=== PATIENT | female | born 1935 ===

== ENCOUNTER 2020-09-30 03:16 | Emergency (ER) | payer OTHER ==
[2020-09-30] MEDS ORDERED: EPINEPHrine 1 MG/10 ML SYR IV ONE (03:17)
--- NOTE | 2020-09-30 06:11 | ER ---
Nurse's Notes [facility] [place] Name: [place] Times Age: 85 yrs Sex: Female : 1935 Arrival Date: 09/30/2020 Time: 03:17 Bed 3 Private MD: Diagnosis: Cardiac arrest Presentation: 09/30 03:15 Chief complaint: EMS states: Pt coming from home CPR in progress. Pt went to bed last dm5 night nauseated and not feeling well. 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 Law enforcement was first on scene and initiated CPR. COMPRESSOR REPAIRER patient was shocked 3 times, received 450 Amiodarone via IO, 5 rounds of epi IO, 1 gram calcium, and 500 ml NS bolus by EMS. Pt has ETT 7.5. CPR was being performed mechanically and then ED staff took over. 03:15 Coronavirus screen: unresponsive. Ebola Screen: Unable to complete the Ebola screening wh because: Patient is unresponsive. Initial Sepsis Screen: Does the patient meet any 2 criteria? No. Patient's initial sepsis screen is negative. Does the patient have a suspected source of infection? No. Patient's initial sepsis screen is negative. Risk Assessment: Do you want to hurt yourself or someone else? Unable to obtain. Onset of symptoms was September 30, 2020. 03:15 Care prior to arrival: Assisted ventilation, Oral intubation, CPR via thumper performed rv by EMS and is still in progress. 03:15 Compressions began prior to arrival. rv 03:36 Acuity: MONICA 1 dm5 03:36 Method Of Arrival: EMS: [facility] dm5 Triage Assessment: 03:15 General: Appears UNresponsive. Historical: - Allergies: 03:54 Unable to obtain; wh - Home Meds: 03:54 Unable to obtain [Active]; wh - PMHx: 03:54 Unable to obtain; wh - PSHx: 03:54 Unable to obtain; - Immunization history:: Adult Immunizations unknown. - Social history:: Smoking status: unknown. Screenin:15 Abuse screen: UNresponsive. Nutritional screening: unresponsive. Tuberculosis wh screening: unresponsive. Fall Risk None identified. Assessment: 03:15 General: Behavior is unresponsive. Pain: Unable to use pain scale. Patient is wh unresponsive. Neuro: Pupils are fixed, dilated. Neuro: Level of Consciousness is unresponsive. Cardiovascular: Rhythm is PEA. Respiratory: Airway via oral intubation. GI: Abdomen is flat, non-distended. : No deficits noted. EENT: pupils fixed dilated. Derm: Skin is intact. 03:15 CPR assessment: unresponsive, pupils fixed \T\ dilated, no respiratory effort, intubated, rv Ambu ventilation, pulses absent w/ compressions. Cardiac rhythm is PEA. 03:16 Reassessment: Life alert bracelet on left arm. 03:16 Reassessment: Central line on right femoral access. 03:40 Reassessment: Officer at bedside. 04:25 Reassessment: Steersman at bedside. 04:30 Reassessment: Family was notified by Charge Nurse that we are just waiting for the Fruit Pitter to come and see Pt prior to letting family see Pt. 05:30 Reassessment: Fruit Pitter recommendation for the body to be autopsied, Fruit Pitter will talk to family. 05:58 Reassessment: Family at bedside. 06:01 Reassessment: Body to be taken by SR transport. Vital Signs: 03:15 Temp 95.4; ED Course: 03:15 Arm band placed on right wrist. 03:15 Maintain EMS IV. 03:17 Patient arrived in ED. cl3 03:20 Placed in gown. Side rails up X 1. 03:20 No provider procedures requiring assistance completed. Pt . 03:22 Keyon Herrera MD is Attending Physician. tw4 03:23 Keyon Herrera MD is Pronouncing Provider. tw4 03:27 called [place] [employer] to notify the sheriff's detective ammunition officer. mw2 03:29 Kojo Chavira is Primary Nurse. 03:36 Triage completed. dm5 Administered Medications: 03:16 Drug: EPINEPHrine 0.1mg/mL 1:10,000 1 mg Route: Endotracheal; rv Outcome: 03:20 Patient : Time of 03:20 Pronounced by Keyon Herrera MD 03:20 Condition: 03:20 Outcome Patient rv 06:10 Patient left the ED. Signatures: Verito Waters, RN RN dm5 Kojo Chavira Keyon Herrera MD MD tw4 Giovany Owen mw2 Hiren Fowler RN RN Sherita Eckert cl3 Corrections: (The following items were deleted from the chart) 03:50 03:15 Cardiovascular: Rhythm is PEA [facility] 04:11 03:15 Cardiovascular: Rhythm is PEA Dialysis shunt: in the right femoral area, [facility] 04:12 04:11 Reassessment: [facility] 04:12 04:11 Reassessment: Central line on right femoral access [facility] 06:03 06:01 Reassessment: Body to be taken by SR transport [facility]
--- NOTE | 2020-09-30 06:11 | EDPHYS ---
Physician Documentation [facility] [place] Name: [place] Times Age: 85 yrs Sex: Female : 1935 Arrival Date: 09/30/2020 Time: 03:17 Bed 3 Private MD: ED Physician Keyon Herrera HPI: 09/30 03:40 This 85 yrs old Female presents to ER via EMS with complaints of CPR. tw4 03:40 Preceding the arrest, the patient was dyspneic. The arrest occurred at home. tw4 Pre-hospital course: The arrest was witnessed Bystanders at the scene performed CPR. EMS care prior to arrival: initiation of ACLS, peripheral IV, intubation was successfully performed, oxygen, 100% by ET tube. backboard, Time elapsed prior to ACLS is unknown. ACLS has been in progress for 0235 minutes. Historical: - Allergies: 03:54 Unable to obtain; wh - Home Meds: 03:54 Unable to obtain [Active]; - PMHx: 03:54 Unable to obtain; - PSHx: 03:54 Unable to obtain; - Immunization history:: Adult Immunizations unknown. - Social history:: Smoking status: unknown. ROS: 03:40 Unable to obtain ROS due to comatose state, patient is on ventilator. tw4 Exam: 03:40 MS/ Extremity: Pulses equal, no cyanosis. Neurovascular intact. Full, normal range tw4 of motion. 03:40 Constitutional: The patient appears comatose. 03:40 Chest/axilla: Inspection: normal. 03:40 Cardiovascular: Pulses: not palpable. 03:40 Respiratory: the patient does not display signs of respiratory distress, pt intubated. 03:40 Abdomen/GI: Inspection: abdomen appears normal, scar(s), are noted in the right lower quadrant. 03:40 Neuro: Orientation: Mentation: unable to test, comatose. Vital Signs: 03:15 Temp 95.4; MDM: 03:22 Patient medically screened. tw4 Administered Medications: 03:16 Drug: EPINEPHrine 0.1mg/mL 1:10,000 1 mg Route: Endotracheal; rv Disposition: Patient pronounced on 09/30/20 03:20 by Keyon Herrera. Impression: Cardiac arrest. - Released to Home. Signatures: Kojo Chavira Keyon Herrera MD MD tw4 Hiren Fowler, RN RN rv Corrections: (The following items were deleted from the chart) 06:10 03:23 09/30/2020 03:23 Patient pronounced on 09/30/2020 at 03:20 by Keyon Herrera. ab Impression: Cardiac arrest. Released to Home. tw4
== END 2020-09-30 06:10 | disposition expired ==
LOC: ER 03:16
DX: I46.9 Cardiac arrest, cause unspecified (principal)
CPT/HCPCS: 92950; 99285; J0171